=== PATIENT | male | born 1950 | race Caucasian/White ===

== ENCOUNTER 2018-05-09 07:25 | Day surgery (SDC) | payer MEDICARE, BC ==
[2018-05-08 11:50] LABS: BASOPHILS % (AUTO) 0.4 % (0-1); EOSINOPHILS # (AUTO) 0.4 X10'3 (0-0.9); EOSINOPHILS % (AUTO) 4.3 % (0-6); HEMATOCRIT 43.6 % (42.0-52.0); HEMOGLOBIN 14.9 g/dl (14.0-17.9); LYMPHOCYTES # (AUTO) 1.3 X10'3 (1.1-4.8); LYMPHOCYTES % (AUTO) 13.8 % (21-51); MEAN CORPUSCULAR HEMOGLOBIN 33.4 PG (27.0-31.0); MEAN CORPUSCULAR HGB CONC 34.1 % (33.0-36.5); MEAN CORPUSCULAR VOLUME 97.8 FL (78-98); MEAN PLATELET VOLUME 8.2 FL (7.4-10.4); MONOCYTES # (AUTO) 0.7 X10'3 (0-0.9); MONOCYTES % (AUTO) 7.9 % (2-12); NEUTROPHILS # (AUTO) 6.9 X10'3 (1.8-7.7); NEUTROPHILS % (AUTO) 73.6 % (42-75); PLATELET COUNT 227 X10'3 (140-440); RED BLOOD COUNT 4.46 X10'6 (4.70-6.10); RED CELL DISTRIBUTION WIDTH 13.7 % (11.5-14.5); WHITE BLOOD COUNT 9.3 X10'3 (4.5-11.0)
[2018-05-08 12:01] LABS: PARTIAL THROMBOPLASTIN TIME 25 SECONDS (22-32); PROTHROMBIN TIME 10.6 SECONDS (9.0-12.0)
[2018-05-08 12:22] LABS: ALANINE AMINOTRANSFERASE 28 U/L (12-78); ALBUMIN 3.7 G/DL (3.4-5.0); ALBUMIN/GLOBULIN RATIO 1.1 (1.1-1.5); ALKALINE PHOSPHATASE 90 IU/L (46-116); ANION GAP 9 (8-16); ASPARTATE AMINO TRANSFERASE 23 U/L (10-37); BLOOD UREA NITROGEN 13 MG/DL (7-18); BUN/CREATININE RATIO 12.9 (5.4-32.0); CALCIUM 9.4 MG/DL (8.5-10.1); CHLORIDE 105 MMOL/L (99-107); CREATININE 1.01 MG/DL (0.60-1.10); GLUCOSE 150 MG/DL (70-104); POTASSIUM 4.2 MMOL/L (3.5-5.1); SODIUM 143 MMOL/L (135-145); TOTAL CARBON DIOXIDE 28.7 MMOL/L (24-32); TOTAL PROTEIN 7.1 G/DL (6.4-8.2); eGFR 73 ML/MIN
[~2018-05-09] VITALS: Ht 172.7 cm; Wt 107.6 kg
[2018-05-09] VITALS (12 sets, daily range): BP systolic 101–143; BP diastolic 57–70
[2018-05-09] MEDS ORDERED: diphenhydrAMINE 25mg capsule PO PRN (08:45)
[2018-05-09] MEDS ORDERED: insulin Lispro (HumaLOG) vial - multi-dose SQ SCH (08:45)
[2018-05-09] MEDS ORDERED: glucagon, human recombinant 1mg kit SUBCUT PRN (08:45)
[2018-05-09] MEDS ORDERED: MESSAGE TO PHARMACY PO ONE (08:45)
[2018-05-09] MEDS ORDERED: normal saline 1000ml 1,000 ML IV SCH (08:45)
[2018-05-09] MEDS ORDERED: dextrose 50%-water 50ml dispensing syringe IV PRN ×2 (08:45)
[2018-05-09] MEDS ORDERED: nitroGLYCERIN 0.4mg SUBLingual tab SL PRN (08:45)
[2018-05-09] MEDS ORDERED: dextrose ORAL solution 15 GM/59 ML bottle PO PRN ×2 (08:45)
[2018-05-09] MEDS ORDERED: LORazepam 0.5 MG tablet PO PRN (08:45)
[2018-05-09] MEDS ORDERED: METO25TA6 PO (09:22)
[2018-05-09] MEDS ORDERED: RAMI5CAP65 PO (09:22)
[2018-05-09] MEDS ORDERED: MULT-1074 PO (09:22)
[2018-05-09] MEDS ORDERED: METF500T PO (09:22)
[2018-05-09] MEDS ORDERED: ALLO300T2 PO (09:22)
[2018-05-09] MEDS ORDERED: NIA500ERT PO (09:22)
[2018-05-09] MEDS ORDERED: ATOR80TA PO (09:22)
[2018-05-09] MEDS ORDERED: DIPH25CA83 PO (09:22)
[2018-05-09] MEDS ORDERED: ASPI-1265 PO (09:22)
[2018-05-09] MEDS ORDERED: ASPI-1264 PO (09:22)
[2018-05-09] MEDS ORDERED: LIDOcaine 1% (10mg/ml)w/preservative injection 20ml MDV ONE (10:07)
[2018-05-09] MEDS ORDERED: iohexol 350MG/ML 100ml bottle IV ONE (10:07)
[2018-05-09] MEDS ORDERED: iohexol 350 MG/ML 50ML vial IV ONE (10:07)
[2018-05-09] MEDS ORDERED: fentaNYL/PF 50MCG/1 ML 2ML syringe ONE (10:34)
[2018-05-09] MEDS ORDERED: midazolam 2 mg/2 ml injection ONE (10:34)
[2018-05-09] MEDS ORDERED: proCHLORperazine 10 MG/2 ml inj ONE (10:46)
[2018-05-09] MEDS ORDERED: HYDROcodone/acetaminophen 10/325mg tab PO PRN (12:20)
[2018-05-09] MEDS ORDERED: ondansetron/PF 4mg/2ml inj IV PRN (12:20)
[2018-05-09] MEDS ORDERED: proCHLORperazine 10 MG/2 ml inj IV PRN (12:20)
[2018-05-09] MEDS ORDERED: sodium chloride 0.45% 1,000 ML IV SCH (12:20)
[2018-05-09] MEDS ORDERED: OXAZEpam 15mg capsule PO PRN (12:20)
[2018-05-09] MEDS ORDERED: HYDROcodone/acetaminophen 5mg/325mg tablet PO PRN (12:20)
[2018-05-09] MEDS ORDERED: insulin glargine (Lantus) pen - multi-dose SQ SCH (21:00)
[2018-05-09 21:29] LABS: HEMOGLOBIN A1C 6.3 % (4.5-6.2)
== END 2018-05-09 18:10 | disposition home or self-care (01) ==
LOC: SSTAY O 07:25
PROVIDERS: ATTEND Internal Medicine Cardiovascular Disease
DX: I25.10 Atherosclerotic heart disease of native coronary artery without angina pectoris (principal); I25.82 Chronic total occlusion of coronary artery; E11.9 Type 2 diabetes mellitus without complications; I10 Essential (primary) hypertension; E78.5 Hyperlipidemia, unspecified; Z95.1 Presence of aortocoronary bypass graft; Z79.84 Long term (current) use of oral hypoglycemic drugs; Z79.82 Long term (current) use of aspirin; Z79.899 Other long term (current) drug therapy
CPT/HCPCS: 36415; 71046; 80053; 82948; 83036; 85025; 85610; 85730; 93005; 93459; 99152; 99153; A6257; C1750; C1760; J0780; J1644; J1815; J2001; J2250; J3010; J7030; Q0163; Q9967; A4620

== ENCOUNTER 2023-02-10 14:06 | Outpatient (CLI) | payer MEDICARE, BC ==
[~2023-02-10 14:06] MED LIST: ALLO300T2 PO; AMI200T PO; ASPI-1264 PO; ATOR80TA PO; DIPH25CA83 PO; LOP25T PO; METF500T PO; MULT-1074 PO; NIA500ERT PO; RAMI5CAP65 PO
== END 2023-02-10 23:59 | disposition home or self-care (01) ==
LOC: RT 14:06
PROVIDERS: ATTEND Internal Medicine Cardiovascular Disease
DX: R06.02 Shortness of breath (principal)
CPT/HCPCS: 94010; 94727; 94729